=== PATIENT | male | born 1995 | race Two or more races ===

== ENCOUNTER 2016-10-16 18:27 | Emergency (ER) | payer SELFPAY ==
--- NOTE | 2016-10-16 18:48 | ER Document Report ---
ED Medical Screen (RME) - General Stated Complaint: PSYCH EVAL Time seen by provider: 18:43 Mode of Arrival: Ambulatory Information source: Patient Notes: 20-year-old male wondering however the neighborhood and mom is concerned because his pain behavior is not his normal behavior. No psychiatric history, the symptoms started a few days ago. 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 He is here with his mom and best friend. Appears manic. I have greeted and performed a rapid initial assessment of this patient. A comprehensive ED assessment, evaluation of the patient, analysis of test results , and completion of the medical decision making process will be contacted by additional ED providers. TRAVEL OUTSIDE OF THE [place] IN LAST 30 DAYS: No - Related Data Allergies/Adverse Reactions: No Known Allergies Allergy (Verified 06/06/13 15:49) Past Medical History - Immunizations Hx Diphtheria, Pertussis, Tetanus Vaccination: Yes
[2016-10-16 19:22] LABS: HEMATOCRIT 45.2 % (37.9-51.0); HEMOGLOBIN 15.5 g/dL (13.5-17.0); HGB HCT DIFFERENCE 1.3; MEAN CORPUSCULAR HEMOGLOBIN 31.6 pg (27.0-33.4); MEAN CORPUSCULAR HGB CONC 34.2 g/dL (32.0-36.0); MEAN CORPUSCULAR VOLUME 92 fl (80-97); WHITE BLOOD COUNT 13.5 10^3/uL (4.0-10.5)
[2016-10-16 19:50] LABS: ALANINE AMINOTRANSFERASE 46 U/L (21-72); ALKALINE PHOSPHATASE 60 U/L (38-126); ANION GAP 14 (5-19); ASPARTATE AMINO TRANSFERASE 61 U/L (17-59); BILIRUBIN,TOTAL 1.6 mg/dL (0.2-1.3); BLOOD UREA NITROGEN 9 mg/dL (7-20); CARBON DIOXIDE 23 mmol/L (22-30); CHLORIDE 106 mmol/L (98-107); CREATININE RESULT 1.08 mg/dL (0.52-1.25); GLUCOSE 78 mg/dL (75-110); POTASSIUM 3.9 mmol/L (3.6-5.0); SODIUM 142.9 mmol/L (137-145); TOTAL PROTEIN 7.5 g/dL (6.3-8.2)
[2016-10-16 19:53] LABS: ALCOHOL < 10 mg/dL (NONE DETECTED)
[2016-10-16 20:19] LABS: BASOPHILS % (MANUAL) 0 % (0-2); EOSINOPHILS % (MANUAL) 0 % (0-6); LYMPHOCYTES % (MANUAL) 19 % (13-45); TOTAL CELLS COUNTED 100
[2016-10-16 20:22] LABS: OVALOCYTES 1+; POIKILOCYTOSIS 1+; RBC MORPHOLOGY COMMENT NORMO-CYTIC/CHROMIC; TEAR DROP CELLS 1+
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
[2016-10-16 22:39] LABS: AMORPHOUS SEDIMENT,URINE TRACE /HPF; APPEARANCE,URINE CLEAR; BILIRUBIN,URINE NEGATIVE (NEGATIVE); GLUCOSE, URINE NEGATIVE (NEGATIVE); KETONES,URINE 25 mg/dL (NEGATIVE); LEUKOCYTE ESTERASE,URINE NEGATIVE (NEGATIVE); NITRITE,URINE NEGATIVE (NEGATIVE); PROTEIN,URINE NEGATIVE (NEGATIVE); UROBILINOGEN,URINE NEGATIVE mg/dL (<2.0)
[2016-10-16 22:40] LABS: URINE SPECIFIC GRAVITY 1.005
[2016-10-16 22:54] LABS: URINE BARBITURATES SCREEN NEGATIVE; URINE METHADONE SCREEN NEGATIVE; URINE OPIATES LOW NEGATIVE; URINE PHENCYCLIDINE SCREEN NEGATIVE
--- NOTE | 2016-10-17 08:22 | EKG REPORT ---
SEVERITY:- BORDERLINE ECG - SINUS RHYTHM SHORT GA INTERVAL, ACCELERATED AV CONDUCTION : Confirmed by: Guicho Solomon 17-Oct-2016 08:21:43
[2016-10-17] MEDS ORDERED: HALOPERIDOL DECANOATE INJ 100 MG/1 ML VIAL IM PRN (10:19)
[2016-10-17] MEDS ORDERED: ZIPRASIDONE MESYLATE INJ/PF 20 MG SDV IM ONE (10:19)
[2016-10-17] MEDS ORDERED: BENZTROPINE MESYLATE INJ 2 MG/2 ML AMPULE IM PRN (10:19)
[2016-10-17] MEDS ORDERED: HALOPERIDOL LACTATE INJ 5 MG/1 ML VIAL IM PRN (10:46)
--- NOTE | 2016-10-17 10:54 | PSYCHOLOGICAL NOTE ---
Psych Note - Psych Note Psych Note: Patient is a 20-year-old male who presented overnights with complaints of possible psychosis with manic type presentation. Patient is reportedly a known substance abuser and has presented as recently as 09/01 with similar type presentation which was attributed to LSD. Patient this morning states he only smoked marijuana, but after he smoked it was told by his friend that it was laced. Patient denies knowing what it was laced with. 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 Patient is agitated and refuses to engage in conversation beyond the above stated. Patient is animated and rapidly moving around the room, gesturing with his hands. Patient's father states he is unsure if this is substance induced. 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 Father states the neighbor was concerned and uncomfortable with overall presentation. Patient reportedly went TH to his [employer] with a box of half eaten cookies, other random items, and a photo of he and the patient and was demanding to check his step sister out of school. Patient was eventually picked up by him (father) and then Monday he again presented to his [employer] and was arrested after acting belligerently in the parking lot spinning around in his vehicle with the doors open, attempting to enter the school, etc. Patient was arrested for that as well as an outstanding warrant for failed appearance, but he was bailed out Sat am. Father states he was also acting erratically in front of the detention and mobile crisis was dispatched and offered to bring him to a treatment center in [place]; however, the [facility] would not allow him to leave [facility]. Patient reportedly returned to his mother's home and left without notification and went to [place], started posting bizarre type messages on his FB and then called his stepmother to ask they pick him up. Father states they drove to [place] and found him waiting with his hoodie sweatshirt and pants (note, it was almost 80 degrees) in the parking lot across from [facility], rapping and dancing around. Patient initially agreed to get in the truck, and then tried to get out. Family did eventually travel back to [place]; however, when they stopped, patient got out and rand through neighbor's yards, stripping off his clothes, etc. Father reports he is unsure if these behaviors are substance induced. Patient is alert and oriented to name and location. Patient is agitated and labile. Animated affects. Patient did not mention suicidla/homicidal ideations, intent, plan, or means. Patient denied A/V H; delusions not noted. Thought processes were perseverative and irrational. Conversational speech was labile for rate, tone, and prosody. Intellectual abilities were estimated to be under the influence. Attention and focus were poor. Insight, judgment, and impulse control were poor. Diagnosis: Substance Intoxication R/O 296.80 (F31.9) Unspecified Bipolar and Related Disorder (unable to ascertain given SA) Patient is recommended to continue under IVC. Etiology of patient's presentation is unknown at this time as it is unclear if this is substance induced, organic, or organic causes exasperated by substance abuse. I consulted with Dr. Delatorre in regards to the care and management of this patient. ED MD is in agreement with disposition and recommendations.
[2016-10-18] MEDS ORDERED: OLANZAPINE 5 MG TAB.RAPDIS PO ONE (11:37)
[2016-10-18] MEDS ORDERED: BENZTROPINE MESYLATE 1 MG TABLET PO SCH ×2 (11:45→18:00)
[2016-10-18] MEDS ORDERED: BENZTROPINE MESYLATE 1 MG TABLET PO ONE (12:00)
[2016-10-18 15:07] VITALS: BP 127/82
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
--- NOTE | 2016-10-18 17:33 | ER Document Report ---
ED Psych Disorder / Suicide - General Chief Complaint: Psych Problem Stated Complaint: PSYCH EVAL Mode of Arrival: Ambulatory TRAVEL OUTSIDE OF THE [place] IN LAST 30 DAYS: No - Related Data Allergies/Adverse Reactions: No Known Allergies Allergy (Verified 10/17/16 06:00) Home Medications: Current Home Medications No Home Medications 10/17/16 [History] Past Medical History - General Information source: Patient - Social History Smoking Status: Unknown if Ever Smoked Family History: Reviewed & Not Pertinent Patient has suicidal ideation: No Patient has homicidal ideation: No Renal/ Medical History: Denies: Hx Peritoneal Dialysis Surgical Hx: Negative - Immunizations Hx Diphtheria, Pertussis, Tetanus Vaccination: Yes Physical Exam - Vital signs Vitals: Resp 16 10/16/16 18:50 Course - Re-evaluation Re-evalutation: 10/18/16 17:31 Patient is a 20-year-old male who presents with auditory hallucinations. Under the recommendation of psychiatry, patient will be transferred to [place] on an IVC under Dr. Green's service. - Vital Signs Vital signs: Temp Pulse Resp BP Pulse Ox 97.3 F 61 16 127/82 H 97 10/18/16 15:06 10/18/16 15:06 10/18/16 15:06 10/18/16 15:06 10/18/16 15:06 - Laboratory Result Diagrams: 10/16/16 19:00 10/16/16 19:00 Laboratory results interpreted by me: 10/16/16 10/16/16 10/16/16 19:00 19:00 21:55 WBC 13.5 H Abs Neuts (Manual) 10.3 H Total Bilirubin 1.6 H AST 61 H Urine Ketones 25 H Salicylates < 1.0 L Acetaminophen < 10 L Discharge - Discharge Clinical Impression: Mental health disorder Condition: Stable Disposition: PSYCH HOSP/UNIT Additional Instructions: You are being transferred to [place] under Dr. Green's service.
[2016-10-18] MEDS ORDERED: OLANZAPINE 5 MG TABLET PO SCH (18:00)
[2016-10-18] MEDS ORDERED: CLONIDINE HCL 0.1 MG TABLET PO ONE (18:41)
== END 2016-10-18 19:08 ==
LOC: ER 18:27
DX: F99 Mental disorder, not otherwise specified (principal)
CPT/HCPCS: 93005; 99285; 96372; 96374; 36415; 80307 ×4; 85025; 80053; 81001; 93010; J0515; J3490; J3486

== ENCOUNTER 2019-10-28 00:15 | Emergency (ER) | payer SELFPAY ==
--- NOTE | 2019-10-28 01:30 | ER Document Report ---
ED Psych Disorder / Suicide - General Chief Complaint: Psych Problem Stated Complaint: IVC WITH PAPERS Time Seen by Provider: 10/28/19 01:00 Notes: Patient is a 23-year-old male that comes to the emergency department with a [facility] escort and IVC paperwork with him. Patient tells me that his family did this to him. He states that they do not understand him, he states that they tell him that he cannot do anything right, he states that they cannot understand that he is tough now. 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 He denies SI or HI. He denies recreational drugs. When I asked him why he is here he tells me that "it is because my parents do not know how to deal with me". He states that he also wants a girlfriend and they are trying to keep him from getting a girlfriend. Patient states that he is not on any current medications. He states that he has had mental health evaluations in the past because "I was on acid at that time". Patient appears to be manic and when I asked him if he has had problems with bipolar/natacha, he tells me it was "only because of the acid". Patient does have a recorded history of bipolar disorder. TRAVEL OUTSIDE OF THE [place] IN LAST 30 DAYS: No - Related Data Allergies/Adverse Reactions: No Known Allergies Allergy (Verified 10/17/16 06:00) Past Medical History - General Information source: Patient - Social History Smoking Status: Never Smoker Chew tobacco use (# tins/day): No Frequency of alcohol use: None Drug Abuse: Marijuana Lives with: Family Family History: Reviewed & Not Pertinent Patient has suicidal ideation: No Patient has homicidal ideation: No Renal/ Medical History: Denies: Hx Peritoneal Dialysis Psychiatric Medical History: Reports: Hx Bipolar Disorder Surgical Hx: Negative - Immunizations Hx Diphtheria, Pertussis, Tetanus Vaccination: Yes Review of Systems - Review of Systems Constitutional: No symptoms reported EENT: No symptoms reported Cardiovascular: No symptoms reported Respiratory: No symptoms reported Gastrointestinal: No symptoms reported Genitourinary: No symptoms reported Male Genitourinary: No symptoms reported Musculoskeletal: No symptoms reported Skin: No symptoms reported Hematologic/Lymphatic: No symptoms reported Neurological/Psychological: See HPI Physical Exam - Vital signs Vitals: Temp Pulse Resp BP Pulse Ox 98.3 F 65 18 140/79 H 98 10/28/19 00:24 10/28/19 00:24 10/28/19 00:24 10/28/19 00:24 10/28/19 00:24 - Notes Notes: GENERAL: Energetic, alert, very expressive HEAD: Normocephalic, atraumatic. EYES: Pupils equal, round, slightly dilated, and reactive to light. Extraocular movements intact. ENT: Oral mucosa dry, tongue midline. Oropharynx unremarkable. Airway patent. NECK: Full range of motion. Supple. Trachea midline. LUNGS: Clear to auscultation bilaterally, no wheezes, rales, or rhonchi. No respiratory distress. HEART: Regular rate and rhythm. Borderline bradycardia. No murmur ABDOMEN: Soft, non-tender. Non-distended. EXTREMITIES: Moves all 4 extremities spontaneously. No edema, normal radial and dorsalis pedis pulses bilaterally. No cyanosis. BACK: no cervical, thoracic, lumbar midline tenderness. No saddle anesthesia, normal distal neurovascular exam. Moves all extremities in full range of motion. NEUROLOGICAL: Alert and oriented x3. Normal speech. Cranial nerves II through XII grossly intact. PSYCH: Patient appears manic, steady stream of consciousness, flight of ideas SKIN: Warm, dry, normal turgor. No rashes or lesions noted. Course - Re-evaluation Re-evalutation: Patient is already on IVC paperwork, per IVC paperwork patient was being destructive of a store property, has been confrontational and swearing at strangers, and family members stated that they received several text messages from the patient's friend stating that they are worried about him because he is talking about being suicidal. They also state patient is not taking care of himself. On my evaluation patient is obviously manic with continuous stream of consciousness and flight of ideas. As result IVC paperwork will not be rescinded, he will be medically cleared pending mental health evaluation. CBC unremarkable. Chemistry shows slightly low bicarbonate but urinalysis does not show elevated specific gravity. Patient states he did not eat anything all day, this is most likely from fasting. Blood glucose is low at 64, patient was given food. EKG unremarkable, remaining work-up unremarkable, urine drug screen showing only marijuana. Vital signs unremarkable. On evaluation discussed with patient, patient is cooperative and agreeable, he still declines medication to help him sleep or be calm. Patient is medically cleared pending mental health evaluation in the morning. - Vital Signs Vital signs: Temp Pulse Resp BP Pulse Ox 98.3 F 65 18 140/79 H 98 10/28/19 00:24 10/28/19 00:24 10/28/19 00:24 10/28/19 00:24 10/28/19 00:24 - Laboratory Result Diagrams: 10/28/19 01:30 10/28/19 01:30 Laboratory results interpreted by me: 10/28/19 10/28/19 10/28/19 01:19 01:30 01:30 WBC 12.9 H Absolute Neuts (auto) 9.7 H Sodium 136.4 L Carbon Dioxide 19 L Glucose 64 L Total Bilirubin 1.4 H AST 114 H Urine Ketones 20 H Salicylates < 1.0 L Acetaminophen < 10 L - EKG Interpretation by Me Additional EKG results interpreted by me: EKG shows borderline sinus bradycardia, normal axis, no T wave inversion ST segment changes in consecutive leads, QTC of 460. Discharge - Discharge Clinical Impression: Aggressive behavior, Natacha Bipolar disorder Qualifiers: Active/Remission status: currently active Current bipolar episode type: manic Current episode severity: unspecified Qualified Code(s): F31.10 - Bipolar dis order, current episode manic without psychotic features, unspecified Condition: Stable Disposition: PSYCH HOSP/UNIT
[2019-10-28 01:38] LABS: APPEARANCE,URINE CLEAR; BILIRUBIN,URINE NEGATIVE (NEGATIVE); COLOR,URINE STRAW; GLUCOSE, URINE NEGATIVE (NEGATIVE); KETONES,URINE 20 mg/dL (NEGATIVE); LEUKOCYTE ESTERASE,URINE NEGATIVE (NEGATIVE); NITRITE,URINE NEGATIVE (NEGATIVE); PROTEIN,URINE NEGATIVE (NEGATIVE); URINE SPECIFIC GRAVITY 1.002; UROBILINOGEN,URINE NEGATIVE mg/dL (<2.0)
[2019-10-28 01:46] LABS: ABSOLUTE BASOPHILS # (AUTO) 0.1 10^3/uL (0.0-0.2); ABSOLUTE LYMPHOCYTES (AUTO) 2.2 10^3/uL (0.5-4.7); ABSOLUTE MONOCYTES (AUTO) 0.9 10^3/uL (0.1-1.4); ABSOLUTE NEUT (AUTO) 9.7 10^3/uL (1.7-8.2); BASOPHILS % (AUTO) 0.4 % (0-2); EOSINOPHILS % (AUTO) 0.1 % (0-6); HEMOGLOBIN 15.2 g/dL (13.5-17.0); LYMPHOCYTES % (AUTO) 17.5 % (13-45); MEAN CORPUSCULAR HEMOGLOBIN 33.4 pg (27.0-33.4); MEAN CORPUSCULAR HGB CONC 35.3 g/dL (32.0-36.0); MEAN CORPUSCULAR VOLUME 95 fl (80-97); MONOCYTES % (AUTO) 6.7 % (3-13); PLATELET COUNT 231 10^3/uL (150-450); RED BLOOD COUNT 4.55 10^6/uL (4.35-5.55); RED CELL DISTRIBUTION WIDTH 13.3 % (11.5-14.0); SEGMENTED NEUTROPHILS % (AUTO) 75.3 % (42-78); TOTAL CELLS COUNTED % (AUTO) 100 %; WHITE BLOOD COUNT 12.9 10^3/uL (4.0-10.5)
[2019-10-28 01:53] LABS: URINE AMPHETAMINES SCREEN NEGATIVE; URINE BARBITURATES SCREEN NEGATIVE; URINE BENZODIAZEPINES SCREEN NEGATIVE; URINE COCAINE SCREEN NEGATIVE; URINE METHADONE SCREEN NEGATIVE; URINE PHENCYCLIDINE SCREEN NEGATIVE
[2019-10-28 02:02] LABS: ALBUMIN 4.8 g/dL (3.5-5.0); ALKALINE PHOSPHATASE 63 U/L (38-126); ANION GAP 16 (5-19); ASPARTATE AMINO TRANSFERASE 114 U/L (17-59); BILIRUBIN,TOTAL 1.4 mg/dL (0.2-1.3); BLOOD UREA NITROGEN 11 mg/dL (7-20); CALCIUM 9.6 mg/dL (8.4-10.2); CARBON DIOXIDE 19 mmol/L (22-30); CHLORIDE 101 mmol/L (98-107); POTASSIUM 3.6 mmol/L (3.6-5.0); TOTAL PROTEIN 7.3 g/dL (6.3-8.2)
[2019-10-28 02:08] LABS: URINE MARIJUANA (THC) SCREEN UNCONFIRMED POSITIVE
[2019-10-28 02:10] LABS: ACETAMINOPHEN < 10 ug/mL (10-30); ALCOHOL < 10 mg/dL (NONE DETECTED); SALICYLATE < 1.0 mg/dL (2.0-20.0)
[2019-10-28 02:11] LABS: GLUCOSE 64 mg/dL (75-110)
--- NOTE | 2019-10-28 08:25 | EKG REPORT ---
SEVERITY:- NORMAL ECG - SINUS RHYTHM : Confirmed by: Guicho Solomon 28-Oct-2019 08:24:39
--- NOTE | 2019-10-28 10:35 | ER Document Report ---
Doctor's Note Notes: 10/28/19 10:34 Chart reviewed patient rounded on, patient is very talkative. Reports he is having trouble with his parents. He reports they do not talk to him. He does become slightly emotional teary-eyed talking about his father that has PTSD. Reports he works at [employer] would like to go to work today. 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 He denies suicidal or homicidal ideations. PHYSICAL EXAMINATION: GENERAL: Well-appearing and in no acute distress HEAD: Atraumatic, normocephalic. EYES: Pupils equal round , extraocular movements intact, sclera anicteric, conjunctiva are normal. ENT: nares patent, Moist mucous membranes. NECK: Normal range of motion, supple without lymphadenopathy LUNGS: CTAB and equal. No wheezes rales or rhonchi. HEART: Regular rate and rhythm without murmurs ABDOMEN: Soft, no tenderness. EXTREMITIES: Normal range of motion, NEUROLOGICAL: Cranial nerves grossly intact. PSYCH: Normal mood, normal affect. SKIN: Warm, Dry, normal 10/28/19 Father is in the waiting room. Would like to talk about patient. I contacted Tg from mental health. He was instructed she would be with him in a few hours. He verbalized understanding. 10/28/19 18:55 Patient is slightly manic. Pacing around the room continuously talking. Easily redirected, Ativan ordered
[2019-10-28] MEDS ORDERED: BENZTROPINE MESYLATE 1 MG TABLET PO SCH (15:00)
--- NOTE | 2019-10-28 17:35 | PSYCHOLOGICAL NOTE ---
Psych Note - Psych Note Date seen by psych provider: 10/28/19 Time seen by psych provider: 07:50 Psych Note: Patient is a 23-year-old male who presents to ED via [facility] on IVC petition by his father. Patient has a history with behavioral health team. Patient was last se en by [facility] on October 18, 2016 for similar presentation (dyeanira and noncompliance to treatment), and was transferred to [facility]. The following collateral information was obtained by patient's father, Prince ([phone]). Father reports mental health diagnoses of bipolar disorder, ADHD, and anxiety. Father states patient refuses treatment. Father describes patient's behavior as "all over the place" since Monday. Father stated patient's employer from [employer] called to state that patient was "causing a scene inside the store." Father states he has contacted law enforcement and mobile crisis on Monday, Monday, and Monday due to patient's behavior (driving excessive speeds, destroyed property, yelling and cursing at neighbors, agitation, and pacing). Father denies patient has been physically violent with others. Father denies patient has endorsed suicidal ideation. States he is doing well. Patient minimizes father's concerns. Patient denies suicidal ideation. Patient denies homicidal ideation. Patient denies auditory and visual hallucinations. Denies current substance abuse, other than marijuana. Patient reports last use of illicit substance was 2 years ago when he used acid. Patient is not currently linked with a mental health provider for medication management and mental health services. Clinician notes psychomotor agitation and pressured speech with flight of ideas. Patient is alert and oriented to person, place, time and circumstance. Mood is elevated with congruent affect. Patient denies suicidal and homicidal ideations. Delusions are absent and behavior is congruent with an intact reality based presentation (i.e., organized and linear through processes). There is no observed behavior that suggests patient is responding to internal stimuli. Patient denies current auditory and visual hallucinations. Eye contact is appropriate. Conversational speech is pressured. Intellectual ability appears to be within average range. Attention and concentration are fair. Insight, judgment and impulse control are currently poor. Medication recommendations per [facility] contracted psychiatrist Dr. Brennan MD are as follows: Add Zyprexa 5MG, twice a day Cogentin 1MG, daily Impression/Plan: Patient is recommended for IVC. Medication recommendations have been provided. Patient has a history of noncompliance with treatment for Bipolar Disorder. Patient has engaged in destruction of property in the home as described as throwing items from the home through a window. Clinician notes pressured speech, psychomotor agitation, and flight of ideas that is suggestive of a manic episode. Plan is to find appropriate placement. Referral packet faxed to [facility], [facility], [facility]idi Rucker, [facility]iel[facility], and [facility]. Dr. Delatorre was consulted on the care and management of this patient; attending physician is in agreement with recommendations and disposition. UPDATE 20:40- Patient was accepted by [facility]. D was contacted at 20:41 for transport. Patient was informed of placement and transportation process. Patient verbalized no concerns.
[2019-10-28] MEDS ORDERED: OLANZAPINE 5 MG TAB.RAPDIS PO SCH (18:00)
[2019-10-28] MEDS ORDERED: LORAZEPAM 1 MG TABLET PO ONE (18:55)
[2019-10-28 20:22] VITALS: BP 124/73
== END 2019-10-28 23:20 ==
LOC: ER 00:15
DX: Z04.6 Encounter for general psychiatric examination, requested by authority (principal); H57.04 Mydriasis; F31.10 Bipolar disorder, current episode manic without psychotic features, unspecified; F12.10 Cannabis abuse, uncomplicated
CPT/HCPCS: 93005; 99284; 36415; 80307 ×4; 85025; 80053; 81001; 93010; J3490

== ENCOUNTER 2020-03-24 10:44 | Emergency (ER) | payer SELFPAY ==
--- NOTE | 2020-03-24 11:22 | ER Document Report ---
ED General - General Chief Complaint: Possible Overdose Stated Complaint: POSSIBLE OVERDOSE Time Seen by Provider: 03/24/20 10:56 Primary Care Provider: CONNOR ARREOLA MD [NO LOCAL MD] - Follow up as needed Notes: HPI: Patient is a 24-year-old male who presents today after he supposedly took 1 2050 mg Benadryl tablets and 1 Percocets 130 minutes prior to arrival at 10:30 AM. Patient states he was having some frustration since having his wisdom teeth taken out last week. Patient states he has a history of depression but is never had a suicide attempt in the past. ROS: See HPI All other review of systems reviewed and otherwise negative Reviewed vital signs and nursing note as charted by RN. PHYSICAL EXAM: CONSTITUTIONAL: Alert and oriented and responds appropriately to questions. Well-appearing; well-nourished HEAD: Normocephalic; atraumatic EYES: PERRL; sclerae non-ictericl no nystagmus ENT: Normal nose; no rhinorrhea; moist mucous membranes; pharynx without lesions noted NECK: Supple without meningismus; non-tender; no cervical lymphadenopathy, no masses CARD: Tachycardic and regular; no murmurs; symmetric distal pulses RESP: Normal chest excursion without splinting or tachypnea; breath sounds clear and equal bilaterally; no wheezes, no rhonchi, no rales ABD/GI: Normal bowel sounds; non-distended; soft, non-tender; no palpable organomegaly or masses BACK: The back appears normal and is non-tender to palpation EXT: Normal ROM in all joints; non-tender to palpation; no edema SKIN: No acute lesions noted NEURO: CN 2-12 intact; 5/5 bilateral upper and lower extremity strength with sensation intact to light touch PSYCH: The patient's mood and manner are appropriate. Grooming and personal hygiene are appropriate. TRAVEL OUTSIDE OF THE [place] IN LAST 30 DAYS: No - Related Data Allergies/Adverse Reactions: No Known Allergies Allergy (Verified 10/17/16 06:00) Past Medical History - Social History Smoking Status: Unknown if Ever Smoked Family History: Reviewed & Not Pertinent Renal/ Medical History: Denies: Hx Peritoneal Dialysis Psychiatric Medical History: Reports: Hx Bipolar Disorder - Immunizations Hx Diphtheria, Pertussis, Tetanus Vaccination: Yes Physical Exam - Vital signs Vitals: Temp Resp Pulse Ox 98.5 F 9 L 99 03/24/20 10:47 03/24/20 10:47 03/24/20 10:47 Course - Re-evaluation Re-evalutation: Given the above history and physical, we will place the patient on the monitor, obtain basic labs, liver panel, psychiatric evaluation, and reassess. Patient is tachycardic. Patient does have a bottle of Percocet with a total quantity of 12 with sufficient amount remaining. Tachycardia is most likely secondary to the anticholinergic effects of the Benadryl. Blood pressure stable. 03/24/20 11:22 EKG shows a heart of 112, sinus tachycardia, normal axis, no ST elevation or depression. 03/24/20 11:44 Reviewing the patient's chart it appears that the patient does have a history of bipolar and is noncompliant with medications. He has been evaluated here for deyanira in the past. 03/24/20 12:39 Labs as recorded. We have filled out the 24-hour hold paperwork and have started the patient on medications with psychiatry/psychology consultation. - Vital Signs Vital signs: Temp Pulse Resp BP Pulse Ox 98.5 F 12 133/93 H 99 03/24/20 10:47 03/24/20 12:01 03/24/20 12:00 03/24/20 12:01 - Laboratory Result Diagrams: 03/24/20 10:50 03/24/20 10:50 Laboratory results interpreted by me: 03/24/20 10:50 Salicylates < 1.0 L Acetaminophen < 10 L Discharge - Discharge Clinical Impression: Intentional overdose of drug in tablet form, Suicidal ideations Anticholinergic syndrome Qualifiers: Encounter type: initial encounter Injury intent: intentional self-harm Qualified Code(s): T44.3X2A - Poisoning by other parasympatholytics [a nticholinergics and antimuscarinics] and spasmolytics, intentional self-harm, initial encounter Condition: Fair Disposition: PSYCH HOSP/UNIT Referrals: CONNOR ARREOLA MD [NO LOCAL MD] - Follow up as needed
[2020-03-24 11:26] LABS: ABSOLUTE BASOPHILS # (AUTO) 0.1 10^3/uL (0.0-0.2); ABSOLUTE LYMPHOCYTES (AUTO) 2.3 10^3/uL (0.5-4.7); ABSOLUTE MONOCYTES (AUTO) 0.5 10^3/uL (0.1-1.4); ABSOLUTE NEUT (AUTO) 5.1 10^3/uL (1.7-8.2); BASOPHILS % (AUTO) 0.7 % (0-2); EOSINOPHILS % (AUTO) 0.5 % (0-6); HEMATOCRIT 48.7 % (37.9-51.0); HEMOGLOBIN 16.9 g/dL (13.5-17.0); LYMPHOCYTES % (AUTO) 28.5 % (13-45); MEAN CORPUSCULAR HEMOGLOBIN 32.5 pg (27.0-33.4); MEAN CORPUSCULAR HGB CONC 34.7 g/dL (32.0-36.0); MEAN CORPUSCULAR VOLUME 94 fl (80-97); MONOCYTES % (AUTO) 6.7 % (3-13); PLATELET COUNT 286 10^3/uL (150-450); RED BLOOD COUNT 5.19 10^6/uL (4.35-5.55); SEGMENTED NEUTROPHILS % (AUTO) 63.6 % (42-78); TOTAL CELLS COUNTED % (AUTO) 100 %
[2020-03-24 11:39] LABS: ACETAMINOPHEN < 10 ug/mL (10-30); ALCOHOL < 10 mg/dL (NONE DETECTED); ALKALINE PHOSPHATASE 61 U/L (38-126); ANION GAP 11 (5-19); ASPARTATE AMINO TRANSFERASE 32 U/L (17-59); BILIRUBIN,TOTAL 0.4 mg/dL (0.2-1.3); BLOOD UREA NITROGEN 14 mg/dL (7-20); CALCIUM 10.1 mg/dL (8.4-10.2); CARBON DIOXIDE 24 mmol/L (22-30); CHLORIDE 103 mmol/L (98-107); GLUCOSE 95 mg/dL (75-110); POTASSIUM 3.8 mmol/L (3.6-5.0); SALICYLATE < 1.0 mg/dL (2.0-20.0); TOTAL PROTEIN 7.8 g/dL (6.3-8.2)
--- NOTE | 2020-03-24 12:35 | PSYCHOLOGICAL NOTE ---
Psych Note - Psych Note Date seen by psych provider: 03/24/20 Time seen by psych provider: 11:55 Psych Note: Reason for Consult: Intentional overdose Patient presented to [facility] ED via EMS after intentional overdose. He reports he has been upset because he has been worried about his teeth after having his wisdom teeth removed. He reports he has not been able to eat or drink so has not had any energy. He reports after he took the pills he regretted it; "I don't want to ." Patient confirms he still has not been taking medication for his Bipolar; "maybe I should do that." He discloses that he also has been having difficulty with sleeping; stating he only has been sleeping for a few hours at night. He states he has been noticing symptoms he experiences before having a manic episode. Clinician discussed plan of care ie 24 hour petition for evaluation (and all policies in connection), medication to assist with mental health symptoms. Patient is alert and orientated to person, place, time and circumstance. Mood is dysphoric with blunted affect; hypomanic. Patient presented after intentional overdose. Patient denies homicidal ideation. Delusions are absent behaviors congruent with an intact reality based presentation ie organized and linear thought process. Eye contact is well maintained. Conversational speech is currently within normal rate, tone and prosody. Intellectual abilities appear to be thin average range. Attention and concentration are fair. Insight, judgment, impulse control is poor. Clinical presentation: intentional overdose hypomanic Impression/Plan: Patient is recommended for 24 petition for evaluation; paperwork is signed and placed in patient's chart. Patient presents after intentional overdose. Patient presents hypomanic after impulsively overdosing after being upset about being weak do to being unable to eat or drink since his wisdom teeth were removed. He is currently not medically cleared; psychiatric evaluation is ongoing. Dr. Delatorre was consulted on the care and management of this patient; attending physician is in agreement with recommendations and disposition.
[2020-03-24 14:04] LABS: APPEARANCE,URINE CLEAR; BILIRUBIN,URINE NEGATIVE (NEGATIVE); COLOR,URINE STRAW; GLUCOSE, URINE NEGATIVE (NEGATIVE); KETONES,URINE NEGATIVE (NEGATIVE); LEUKOCYTE ESTERASE,URINE NEGATIVE (NEGATIVE); NITRITE,URINE NEGATIVE (NEGATIVE); PROTEIN,URINE NEGATIVE (NEGATIVE); URINE SPECIFIC GRAVITY 1.011; UROBILINOGEN,URINE NEGATIVE mg/dL (<2.0)
[2020-03-24 14:25] LABS: URINE AMPHETAMINES SCREEN NEGATIVE; URINE BARBITURATES SCREEN NEGATIVE; URINE BENZODIAZEPINES SCREEN NEGATIVE; URINE COCAINE SCREEN NEGATIVE; URINE MARIJUANA (THC) SCREEN NEGATIVE; URINE METHADONE SCREEN NEGATIVE; URINE PHENCYCLIDINE SCREEN NEGATIVE
[2020-03-24] MEDS: BENZTROPINE MESYLATE 1 MG TABLET PO SCH (17:38)
[2020-03-24] MEDS: OLANZAPINE 5 MG TABLET PO SCH (17:39)
[2020-03-25 06:53] VITALS: BP 130/98
--- NOTE | 2020-03-25 09:24 | EKG REPORT ---
SEVERITY:- OTHERWISE NORMAL ECG - SINUS TACHYCARDIA : Confirmed by: Guicho Solomon 25-Mar-2020 09:24:29
[2020-03-25] MEDS: BENZTROPINE MESYLATE 1 MG TABLET PO SCH (10:23)
[2020-03-25] MEDS: OLANZAPINE 5 MG TABLET PO SCH (10:23)
--- NOTE | 2020-03-25 11:46 | PSYCHOLOGICAL NOTE ---
Psych Note - Psych Note Date seen by psych provider: 03/25/20 Time seen by psych provider: 11:10 Psych Note: Reason for Consult: Intentional overdose Patient presented to [facility] ED via EMS after intentional overdose. He reports he has been upset because he has been worried about his teeth after having his wisdom teeth removed. Check in conducted with patient: Clinical presentation: Medication recommendations per [facility] contracted psychiatrist Dr. Brennan MD are as follows: Zyprexa 5mg, twice a day Cogentin 1mg, daily Impression/Plan: Patient is recommended for rescind of 24 hour petition and is cleared from psychiatric services; paperwork is signed and placed in patient's chart. Dr. Delatorre was consulted on care and management of this patient; attending physician is in agreement with recommendations and disposition.
--- NOTE | 2020-03-25 12:38 | ER Document Report ---
Doctor's Note Notes: 03/25/20 12:33 Patient's vital signs are previous labs, diagnostic imaging reviewed. Reviewed mental health notes, nurses notes and previous vital signs. Patient is in no distress at this time denies any SI or HI. States he has concerns that food is getting stuck from where he had his wisdom teeth removed. He denies being in any pain at this time. General: Alert, oriented ENT: He has 4 nontender wisdom tooth sockets. Heart: Regular rate rhythm, no murmurs rubs or gallops Lungs: Clear to auscultation bilaterally Psych: Normal affect A&P: I discussed with patient the importance of continue to gargle with salt water to remove any food particles. I did remove a very superficial piece of food from the right lower socket. Recommend that he does follow-up with his dentist if he does develop any pain or worsening symptoms. Patient is medically cleared.
== END 2020-03-25 13:30 | disposition home or self-care (01) ==
LOC: ER 10:44
DX: T44.3X2A Poisoning by other parasympatholytics [anticholinergics and antimuscarinics] and spasmolytics, intentional self-harm, initial encounter (principal); R00.0 Tachycardia, unspecified; X58.XXXA Exposure to other specified factors, initial encounter
CPT/HCPCS: 36415; 80053; 80307; 81001; 85025; 93005; 93010; 99285

== ENCOUNTER 2020-07-12 22:02 | Emergency (ER) | payer BC ==
--- NOTE | 2020-07-12 23:18 | ER Document Report ---
ED Medical Screen (RME) - General Stated Complaint: NUMBNESS OF FACE,ARMS, TINGLE ALL OVER Time Seen by Provider: 07/12/20 23:16 Mode of Arrival: Ambulatory Information source: Patient Notes: Patient is a 24-year-old male coming in today with paresthesias and anxiety after smoking marijuana. Still feels somewhat anxious. Worried about taking his usual meds to sleep. General: Slightly anxious Cardiac regular rate and rhythm Pulmonary no distress I have greeted and performed a rapid initial assessment of this patient. A comprehensive ED assessment and evaluation of the patient, analysis of test re sults and completion of the medical decision making process will be conducted by additional ED providers. TRAVEL OUTSIDE OF THE [place] IN LAST 30 DAYS: No - Related Data Allergies/Adverse Reactions: No Known Allergies Allergy (Verified 10/17/16 06:00) Past Medical History - Past Medical History Cardiac Medical History: Reports: Hx Hypertension Renal/ Medical History: Denies: Hx Peritoneal Dialysis Psychiatric Medical History: Reports: Hx Bipolar Disorder Past Surgical History: Reports: Hx Oral Surgery - wisdom teeth - Immunizations Hx Diphtheria, Pertussis, Tetanus Vaccination: Yes Physical Exam - Vital signs Vitals: Temp Pulse Resp BP Pulse Ox 98.7 F 108 H 18 146/86 H 98 07/12/20 22:23 07/12/20 22:23 07/12/20 22:23 07/12/20 22:23 07/12/20 22:23 Course - Vital Signs Vital signs: Temp Pulse Resp BP Pulse Ox 98.7 F 108 H 18 146/86 H 98 07/12/20 22:23 07/12/20 22:23 07/12/20 22:23 07/12/20 22:23 07/12/20 22:23
--- NOTE | 2020-07-13 01:06 | ER Document Report ---
ED General - General Chief Complaint: Numbness of Arm Stated Complaint: NUMBNESS OF FACE,ARMS, TINGLE ALL OVER Time Seen by Provider: 07/12/20 23:16 Primary Care Provider: ALONSO RODRIGUEZ DO [Primary Care Provider] - Follow up as needed Mode of Arrival: Ambulatory Information source: Patient Notes: Patient is a 24-year-old male who comes in today with tingling in various paresthesias after smoking marijuana. He is on Seroquel, Celexa, and Sonata health issues. Comes in because he is worried about taking his usual night meds because of the effect of the marijuana that he smoked at 5:00 this afternoon. By the time he is seen in the emergency department the paresthesias have gone away and the potation's have gone away as well. TRAVEL OUTSIDE OF THE [place] IN LAST 30 DAYS: No - Related Data Allergies/Adverse Reactions: No Known Allergies Allergy (Verified 10/17/16 06:00) Past Medical History - General Information source: Patient - Social History Smoking Status: Former Smoker Family History: Reviewed & Not Pertinent - Past Medical History Cardiac Medical History: Reports: Hx Hypertension Renal/ Medical History: Denies: Hx Peritoneal Dialysis Psychiatric Medical History: Reports: Hx Bipolar Disorder Past Surgical History: Reports: Hx Oral Surgery - wisdom teeth - Immunizations Hx Diphtheria, Pertussis, Tetanus Vaccination: Yes Review of Systems - Review of Systems Notes: Constitutional: No fevers. No chills. EENT: No eye redness. No eye pain. No ear pain. No sore throat. Cardiovascular: No chest pain. +palpitations. Respiratory: No cough. No shortness of breath. No respiratory distress. Gastrointestinal: No abdominal pain. No nausea, vomiting, or diarrhea. Genitourinary: Atraumatic. No lesions. No pain. No discharge. Musculoskeletal: Atraumatic. No swelling. No deformities. Skin: No rash or lesions. Lymphatic: No swollen lymph nodes. Neurologic: No headache. No syncope. Positive paresthesias Psychiatric: No suicidal or homicidal ideation. Physical Exam - Vital signs Vitals: Temp Pulse Resp BP Pulse Ox 98.7 F 108 H 18 146/86 H 98 07/12/20 22:23 07/12/20 22:23 07/12/20 22:23 07/12/20 22:23 07/12/20 22:23 - Notes Notes: General: Well-developed, well-nourished. In no acute distress. Non-toxic appearing. Cardiac: Well-perfused. Regular rate and rhythm. No murmurs, rubs, or gallops. Pulmonary: No respiratory distress. No cyanosis. Bilateral lung fiels are clear to auscultation. Abdominal: Non-distended. Non-rigid. Bowels sounds are present in all four quadrants. No guarding or rebound. HEENT: Head is atraumatic. Conjunctivae not reddened. No tearing. PERRL. EOMI. Orbits atraumatic. No periorbital swelling or erythema. Oropharynx is without erythema, swelling, or exudates. Neck: Supple. No adenopathy. No meningismus. Dermatologic: Warm with good turgor. No rash. Atraumatic. Chest: Atraumatic. No chest wall tenderness to palpation. Musculoskeletal: Moves all extremities well. No range of motion deficits. no muscular or joint tenderness. No paraspinal muscle tenderness. no midline spinal tenderness or step-off. Genitourinary: Examination deferred Neurologic: No gross neurologic deficits. Psychiatric: Normal mood. Course - Re-evaluation Re-evalutation: 07/13/20 01:00 Indicated to the patient I think his symptoms are secondary to laced marijuana. His exam here is normal. I do not have any concerns about him taking his usual meds this evening. Discharge with reassurance 07/13/20 01:08 She came in with mild sinus tachycardia. He is now completely normal. Will discharge - Vital Signs Vital signs: Temp Pulse Resp BP Pulse Ox 98.7 F 108 H 18 146/86 H 98 07/12/20 22:23 07/12/20 22:23 07/12/20 22:23 07/12/20 22:23 07/12/20 22:23 - EKG Interpretation by Me EKG shows normal: Sinus rhythm, [place], Intervals, QRS Complexes, ST-T Waves Rate: Tachycardia Discharge - Discharge Clinical Impression: Illicit drug use, Drug side effects Condition: Good Disposition: HOME, SELF-CARE Instructions: Drug Effects ([facility]) Additional Instructions: Avoid taking drugs. Referrals: ALONSO RODRIGUEZ DO [Primary Care Provider] - Follow up as needed
[2020-07-13 01:10] VITALS: BP 131/93
--- NOTE | 2020-07-13 05:28 | EKG REPORT ---
SEVERITY:- OTHERWISE NORMAL ECG - SINUS TACHYCARDIA : Confirmed by: Elmer Logan MD 13-Jul-2020 05:27:03
== END 2020-07-13 01:15 | disposition home or self-care (01) ==
LOC: ER 22:02
DX: R20.2 Paresthesia of skin (principal); T40.7X5A Adverse effect of cannabis (derivatives), initial encounter; R00.0 Tachycardia, unspecified; I10 Essential (primary) hypertension; F31.9 Bipolar disorder, unspecified; Z79.899 Other long term (current) drug therapy; Z87.891 Personal history of nicotine dependence
CPT/HCPCS: 93005; 93010; 99283